=== PATIENT | female | born 1985 | race Two or more races ===

== ENCOUNTER 2019-05-27 02:41 | Emergency (ER) | payer OTHER ==
[~2019-05-27] VITALS: Ht 160 cm; Wt 54.4 kg
[2019-05-27] MEDS ORDERED: ZYRTEC10 M2 PO (06:30)
[2019-05-27] MEDS ORDERED: FLONASE16 GM NASAL (06:30)
[2019-05-27] MEDS ORDERED: ZOFRAN4 MG PO (06:30)
[2019-05-27] MEDS ORDERED: ZANTAC300 MG PO (06:30)
== END 2019-05-27 06:38 ==
LOC: ER 02:41
DX: K29.00 Acute gastritis without bleeding (principal); R11.11 Vomiting without nausea; R19.7 Diarrhea, unspecified; R09.81 Nasal congestion; R05 Cough